=== PATIENT | female | born 1955 ===

== ENCOUNTER → 2021-08-08 08:00 | Outpatient (CLI) | payer OTHER | END | disposition home or self-care (01) | LOC: LAB 08:00 → ADM 13:15 → AMB-ENDOS 08-12 13:15 → EDSTATUS 08-12 13:15 | PROVIDERS: ATTEND Surgery | DX: K62.89 Other specified diseases of anus and rectum (principal); K64.4 Residual hemorrhoidal skin tags; L29.0 Pruritus ani; K21.9 Gastro-esophageal reflux disease without esophagitis; Z03.818 Encounter for observation for suspected exposure to other biological agents ruled out ==